=== PATIENT | female | born 1970 | race Caucasian/White ===

== ENCOUNTER 2019-01-23 12:13 | Day surgery (SDC) | payer OTHER ==
[~2019-01-23] VITALS: Ht 264.2 cm; Wt 108.0 kg
[~2019-01-23 12:13] MED LIST: Hair, Skin & N1 EACH PO; IBUP400 PO; VITAMIN B COMPLEX PO; Vitamin B Comple1 EA PO
--- NOTE | 2019-01-23 14:46 | NUR ---
01/23/19 1446 Michelle De V REPORT GIVEN BY [facility], ASSUMED CARE OF PT.
== END 2019-01-23 15:08 | disposition home or self-care (01) ==
LOC: ORSCSDS 12:13
PROVIDERS: Obstetrics & Gynecology
PROC: 0U5B8ZZ Destruction of Endometrium, Via Natural or Artificial Opening Endoscopic (ICD-10-PCS; principal; 2019-01-23 13:45)
DX: N92.0 Excessive and frequent menstruation with regular cycle (principal); D25.9 Leiomyoma of uterus, unspecified; N84.0 Polyp of corpus uteri; E66.01 Morbid (severe) obesity due to excess calories; Z68.41 Body mass index [BMI] 40.0-44.9, adult
CPT/HCPCS: 88305; J1100; J1885; J2250; J2405; J3010; J7120

== ENCOUNTER → 2020-07-20 | Outpatient (CLI) | payer OTHER | END | disposition home or self-care (01) | LOC: LAB 15:06 → LAB SHORT 15:06 | DX: R30.0 Dysuria (principal) | CPT/HCPCS: 87086 ==